=== PATIENT | male | born 1975 | race Two or more races ===

== ENCOUNTER → 2024-09-18 | Emergency (ER) | payer OTHER ==
[~2024-09-18] VITALS: Ht 180.3 cm; Wt 99.8 kg
[~2024-09-18] MED LIST: IRBESARTAN75 MG PO; LEVO-T25 MCG; ROSUVASTATIN CA10 MG PO
== END | disposition left against medical advice (07) ==
LOC: ER 20:13
DX: Z53.21 Procedure and treatment not carried out due to patient leaving prior to being seen by health care provider (principal)